=== PATIENT | female | born 1955 | race Caucasian/White ===

== ENCOUNTER 2017-04-02 11:30 | Inpatient (IN) | payer OTHER ==
[~2017-04-02] VITALS: Ht 162.6 cm; Wt 81.4 kg
[2017-04-03 04:17] LABS: HCT 36.6 % (37.0-47.0); MCHC 32.8 g/dL (32.0-36.0); MCV 91.5 fL (78.0-100.0); MPV 10.1 fL (6.0-9.5); RDW 15.1 % (11.5-14.0)
[2017-04-03 04:42] LABS: CREATININE 0.6 mg/dL (0.5-1.0); POTASSIUM 4.9 mmol/L (3.5-5.1)
[2017-04-04 05:50] LABS: HCT 33.3 % (37.0-47.0); HGB 10.8 g/dl (12.5-16.0); MCH 30.2 pg (25.0-31.0); MCHC 32.4 g/dL (32.0-36.0); RBC 3.58 M/uL (4.20-5.40); RDW 15.4 % (11.5-14.0); WBC 10.1 K/uL (4.0-10.5)
[2017-04-04 06:20] LABS: CREATININE 0.7 mg/dL (0.5-1.0); POTASSIUM 5.1 mmol/L (3.5-5.1)
[2017-04-04] MEDS ORDERED: PERCOCET 5/3251 TAB PO (14:08)
[2017-04-04] MEDS ORDERED: XARELTO10 MG PO (14:08)
== END 2017-04-04 12:55 | disposition home or self-care (01) | DRG 470 ==
LOC: FMS 11:30
PROVIDERS: Internal Medicine Nephrology; ADMIT Legal Medicine
PROC: 8E0YXBZ Computer Assisted Procedure of Lower Extremity (ICD-10-PCS; 2017-04-02)
PROC: 0SRC0J9 Replacement of Right Knee Joint with Synthetic Substitute, Cemented, Open Approach (ICD-10-PCS; principal; 2017-04-02 11:30)
DX: M17.11 Unilateral primary osteoarthritis, right knee (principal); D72.829 Elevated white blood cell count, unspecified; Z85.819 Personal history of malignant neoplasm of unspecified site of lip, oral cavity, and pharynx; F17.210 Nicotine dependence, cigarettes, uncomplicated
CPT/HCPCS: 36415; 73560; 80048; 86850; 86900; 86901; 87640; 87641; 87900; 88305; 88311; 94010; 97110; 97116; 97161; 97165; 97530; 97530-GP; 97535; C1713; C1776; J0131; J0697; J1100; J1170; J1885; J2270; J2405; J2704; J2795; J3010